=== PATIENT | female | born 1995 | race Caucasian/White ===

== ENCOUNTER 2023-05-11 10:52 | Emergency (ER) ==
[2023-05-11] MEDS ORDERED: PRENTAB9 PO (11:27)
[2023-05-11] MEDS ORDERED: ACET325C5 PO (11:27)
== END 2023-05-11 12:21 | disposition admitted as inpatient to this hospital (09) ==
LOC: M ED 10:52
DX: O99.891 Other specified diseases and conditions complicating pregnancy (principal); M54.9 Dorsalgia, unspecified; Z3A.00 Weeks of gestation of pregnancy not specified

== ENCOUNTER 2023-05-11 11:13 | Outpatient (CLI) | payer OTHER ==
[~2023-05-11] VITALS: Ht 160 cm; Wt 91.0 kg
[2023-05-11] MEDS ORDERED: PRENTAB9 PO (11:27)
[2023-05-11] MEDS ORDERED: ACET325C5 PO (11:27)
[2023-05-11] MEDS ORDERED: HOME MED LIST COMPLETE! XX SCH (11:30)
[2023-05-11 13:03] VITALS: BP 99/55
[2023-05-11 13:44] LABS: HEMATOCRIT 32.5 % (36.0-47.0); HEMOGLOBIN 10.4 g/dl (12.0-15.5); MEAN CORPUSCULAR HEMOGLOBIN 27.4 pg (27.0-33.0); MEAN CORPUSCULAR VOLUME 85.8 fl (80.0-96.0); PLATELET COUNT, AUTOMATED 267 10^3/uL (150-450); RED BLOOD COUNT 3.79 10^6/uL (4.00-5.40); WHITE BLOOD COUNT 8.4 10^3/uL (4.0-10.0)
[2023-05-11 14:05] LABS: LIPASE 27 U/L (12-53)
[2023-05-11 14:09] LABS: ALBUMIN 2.9 G/DL (3.2-5.2); ALKALINE PHOSPHATASE 79 U/L (46-116); ALT/SGPT 11 U/L (7.0-40); AST/SGOT 8 U/L (<34); BILIRUBIN,TOTAL 0.5 MG/DL (0.3-1.2); BLOOD UREA NITROGEN < 5 MG/DL (9-23); CALCIUM LEVEL 9.1 MG/DL (8.5-10.1); CARBON DIOXIDE LEVEL 24 MMOL/L (20-31); CHLORIDE LEVEL 106 MMOL/L (98-107); CREATININE FOR GFR 0.53 MG/DL (0.55-1.30); GLOMERULAR FILTRATION RATE > 60.0 (>60); GLUCOSE, FASTING 89 MG/DL (60-100); POTASSIUM SERUM 3.8 MMOL/L (3.5-5.1); SODIUM LEVEL 138 MMOL/L (136-145); TOTAL PROTEIN 6.6 G/DL (5.7-8.2)
[2023-05-11] MEDS ORDERED: FOSFOMYCIN TROMETHAMINE 3 GM POWDER PACKET (MONUROL) PO ONE (17:00)
== END 2023-05-11 15:36 | disposition home or self-care (01) ==
LOC: M LDO 11:13
PROVIDERS: ATTEND Obstetrics & Gynecology
DX: O23.592 Infection of other part of genital tract in pregnancy, second trimester (principal); Z3A.24 24 weeks gestation of pregnancy
CPT/HCPCS: 36415; 59025; 80053; 81001; 83690; 85027; G0463

== ENCOUNTER 2023-09-05 07:26 | Inpatient (IN) | payer OTHER ==
[~2023-09-05] VITALS: Ht 160 cm; Wt 97.8 kg
[2023-09-05] VITALS (11 sets, daily range): BP systolic 120–140; BP diastolic 69–92; TEMP 97; O2SAT 97–100
[~2023-09-05 07:26] MED LIST: ACET325C5 PO; PRENTAB9 PO
[2023-09-05] MEDS ORDERED: HOME MED LIST COMPLETE! XX SCH (07:50)
[2023-09-05 08:48] LABS: HEMATOCRIT 32.5 % (36.0-47.0); HEMOGLOBIN 10.4 g/dl (12.0-15.5); MEAN CORPUSCULAR HEMOGLOBIN 27.2 pg (27.0-33.0); MEAN CORPUSCULAR VOLUME 84.9 fl (80.0-96.0); PLATELET COUNT, AUTOMATED 203 10^3/uL (150-450); RED BLOOD COUNT 3.83 10^6/uL (4.00-5.40); WHITE BLOOD COUNT 7.8 10^3/uL (4.0-10.0)
[2023-09-05] MEDS ORDERED: **PENDING PCN ENTRY XX SCH (09:00)
[2023-09-05] MEDS ORDERED: PENICILLIN G POTASSIUM 5 MU IV 5 MU in D5W MINI-BAG PLUS 100 ML IV STA (09:05)
[2023-09-05] MEDS ORDERED: CARBOPROST TROMETHAMINE 250 MCG/ML AMP IM PRN (09:05)
[2023-09-05] MEDS ORDERED: miSOPROStol 50MCG 1/2 TABLET PO PRN (09:05)
[2023-09-05] MEDS ORDERED: LACTATED RINGER'S 1000 ML IV STA (09:05)
[2023-09-05] MEDS ORDERED: OXYTOCIN DRIP 30 UNITS in IV 1 EA IV PRN ×6 (09:05)
[2023-09-05] MEDS ORDERED: METHYLERGONOVINE MALEATE 0.2MG/ML 1ML VIAL IM PRN (09:05)
[2023-09-05] MEDS ORDERED: TRANEXAMIC ACID INJection 1,000 MG in NS 100 ML IV PRN (09:05)
[2023-09-05] MEDS ORDERED: OXYTOCIN INJ 10UNITS/ML 1ML VIAL IV PRN (09:05)
[2023-09-05] MEDS ORDERED: OXYTOCIN DRIP 30 UNITS in IV 1 EA IV SCH (09:05)
[2023-09-05] MEDS ORDERED: OXYTOCIN INJ 10UNITS/ML 1ML VIAL IM PRN (09:05)
[2023-09-05] MEDS ORDERED: LIDOCAINE 1% MDV 20ML VIAL INFIL PRN (09:05)
[2023-09-05] MEDS ORDERED: LR 1,000 ML IV SCH (09:05)
[2023-09-05] MEDS ORDERED: BICITRA 30ML SOLN UDC PO ONE (09:55)
[2023-09-05] MEDS ORDERED: ceFAZolin SOD 2 GM in IV 1 EA IV ONE (09:55)
[2023-09-05] MEDS ORDERED: PHENYLephrine 500MCG 5ML (100MCG/ML) SYRINGE As Ordered ONE (10:03)
[2023-09-05] MEDS ORDERED: ePHEDrine SULFATE 25 MG/5 ML(5MG/ML) SYRINGE As Ordered ONE (10:03)
[2023-09-05] MEDS ORDERED: OXYTOCIN 30UNITS IN 0.9% NaCl 500ML IV BAG As Ordered ONE (10:03)
[2023-09-05] MEDS ORDERED: MORPHINE PRES-FREE INJ 10 MG/10 ML VIAL As Ordered ONE (10:03)
[2023-09-05] MEDS ORDERED: ONDANSETRON 4MG 2ML VIAL As Ordered ONE (10:22)
[2023-09-05 10:45] LABS: CORD GAS ABE V -4.2; CORD GAS HCO3 V 23.1 MMOL/L; CORD GAS O2 SAT V 46.3 %; CORD GAS PCO2 V 50.5 mmHg; CORD GAS PH V 7.279 UNITS; CORD GAS PO2 V 21.3 mmHg; CORD GAS SBC V 19.7 MMOL/L; CORD GAS TCO2 V 24.7 MMOL/L
[2023-09-05 10:46] LABS: CORD GAS ABE A -4.3; CORD GAS HCO3 A 24.7 MMOL/L; CORD GAS O2 SAT A < 15.0 %; CORD GAS PCO2 A 61.5 mmHg; CORD GAS PH A 7.222 UNITS; CORD GAS PO2 A 10.8 mmHg; CORD GAS TCO2 A 26.6 MMOL/L
[2023-09-05] MEDS ORDERED: MOM 30ML SUSPENSION UDC PO PRN (11:15)
[2023-09-05] MEDS ORDERED: ONDANSETRON 4MG 2ML VIAL IV PRN (11:15)
[2023-09-05] MEDS ORDERED: RHOGAM 300MCG (1500IU) INJ IM SCH (11:15)
[2023-09-05] MEDS ORDERED: oxyCODONE 5MG TAB PO PRN ×2 (11:15)
[2023-09-05] MEDS ORDERED: SIMETHICONE 80MG CHEW TAB PO PRN (11:15)
[2023-09-05] MEDS ORDERED: ACETAMINOPHEN 500 MG TAB PO PRN (11:15)
[2023-09-05] MEDS ORDERED: KETOROLAC 30 MG/ML 1ML VIAL As Ordered ONE (11:53)
[2023-09-05] MEDS: KETOROLAC 30 MG/ML 1ML VIAL IV SCH ×3 (11:55→23:07)
[2023-09-05] MEDS ORDERED: PEN G POT 3,000,000 UNIT/50 ML 3,000,000 UNIT in IV 1 EA IV SCH (13:05)
[2023-09-05] MEDS: DOCUSATE SODIUM 100MG CAPSULE PO SCH (21:37)
[2023-09-06] VITALS (10 sets, daily range): BP systolic 128–170; BP diastolic 71–92; O2SAT 98–100
[2023-09-06] MEDS: KETOROLAC 30 MG/ML 1ML VIAL IV SCH (05:28)
[2023-09-06] MEDS ORDERED: NIFEdipine 10 MG CAP PO STA (06:09)
[2023-09-06 07:01] LABS: HEMATOCRIT 29.8 % (36.0-47.0); HEMOGLOBIN 9.6 g/dl (12.0-15.5); MEAN CORPUSCULAR HEMOGLOBIN 27.8 pg (27.0-33.0); MEAN CORPUSCULAR HGB CONC 32.2 g/dl (32.0-36.5); MEAN CORPUSCULAR VOLUME 86.4 fl (80.0-96.0); PLATELET COUNT, AUTOMATED 196 10^3/uL (150-450); RED BLOOD COUNT 3.45 10^6/uL (4.00-5.40); WHITE BLOOD COUNT 16.5 10^3/uL (4.0-10.0)
[2023-09-06 07:17] LABS: URIC ACID 4.5 MG/DL (3.1-7.8)
[2023-09-06 07:19] LABS: LDH LACTATE DEHYDROGENASE 187 U/L (120-246)
[2023-09-06 07:20] LABS: ALT/SGPT 14 U/L (7.0-40); AST/SGOT 16 U/L (<34); BILIRUBIN,TOTAL 0.4 MG/DL (0.3-1.2); CREATININE FOR GFR 0.55 MG/DL (0.55-1.30); GLOMERULAR FILTRATION RATE > 60.0 (>60)
[2023-09-06 08:16] LABS: CREATININE,RANDOM URINE 30.5 MG/DL
[2023-09-06 08:23] LABS: TOTAL PROTEIN,RANDOM URINE < 6.0 MG/DL (0.0-14.0)
[2023-09-06] MEDS: DOCUSATE SODIUM 100MG CAPSULE PO SCH ×2 (08:50→21:06)
[2023-09-06] MEDS: PRENATAL VITAMINS CHEWABLE TABLET PO SCH (08:50)
[2023-09-06] MEDS: LABETALOL 200 MG TAB PO SCH ×2 (08:53→21:06)
[2023-09-06] MEDS ORDERED: PRENATAL VITAMINS CHEWABLE TABLET PO SCH (09:00)
[2023-09-06] MEDS: ACETAMINOPHEN 500 MG TAB PO SCH ×3 (10:12→21:05)
[2023-09-06] MEDS: IBUPROFEN 800 MG TAB PO SCH ×2 (14:52→21:04)
[2023-09-07] MEDS: ACETAMINOPHEN 500 MG TAB PO SCH ×2 (05:09→10:56)
[2023-09-07] MEDS: IBUPROFEN 800 MG TAB PO SCH (05:10)
[2023-09-07 06:00] VITALS: BP 114/66
[2023-09-07] MEDS: DOCUSATE SODIUM 100MG CAPSULE PO SCH (08:29)
[2023-09-07] MEDS: LABETALOL 200 MG TAB PO SCH (08:29)
[2023-09-07] MEDS: PRENATAL VITAMINS CHEWABLE TABLET PO SCH (08:29)
[2023-09-07] MEDS ORDERED: BOOSTRIX VACCINE (TETANUS/DIPHTH/ACEL. PERTUSSIS) 0.5ML SYR IM.IMMUN ONE (09:00)
[2023-09-07] MEDS ORDERED: MEASLES,MUMPS,RUBELLA VACCINE INJ (MMR-II) SC.IMMUN ONE (09:00)
[2023-09-07 10:00] VITALS: BP 143/93; O2SAT 100
== END 2023-09-07 13:20 | disposition home or self-care (01) | DRG 773 ==
LOC: M LDI 07:26 → M OBS 12:25
PROVIDERS: ADMIT Obstetrics & Gynecology; ATTEND Obstetrics & Gynecology
PROC: 10D00Z1 Extraction of Products of Conception, Low, Open Approach (ICD-10-PCS; principal; 2023-09-05 09:48)
DX: O48.0 Post-term pregnancy (principal); Z37.0 Single live birth; Z3A.41 41 weeks gestation of pregnancy; O76 Abnormality in fetal heart rate and rhythm complicating labor and delivery; O99.824 Streptococcus B carrier state complicating childbirth

== ENCOUNTER 2024-05-17 13:54 | Emergency (ER) | payer OTHER ==
[~2024-05-17] VITALS: Ht 162.6 cm; Wt 103.8 kg
[2024-05-17 15:54] VITALS: BP 134/82; TEMP 97.4; O2SAT 100
== END 2024-05-17 15:55 | disposition home or self-care (01) ==
LOC: M ED 13:54
DX: R05.9 Cough, unspecified (principal); B34.9 Viral infection, unspecified; Z79.810 Long term (current) use of selective estrogen receptor modulators (SERMs)